=== PATIENT | female | born 1950 | race Caucasian/White ===

== ENCOUNTER → 2016-04-27 | Outpatient (CLI) | payer MEDICARE, BC ==
[~2016-04-27] MED LIST: AMLODIPINE BESYL5 MG PO; BACTROBAN OINT.22 GM TP; CELEXA DPS20 MG PO; CLEOCIN HCL150 MG PO; COZAAR100 MG PO; DETROL LA2 MG PO; HYDROCODON-ACE1 EAC4 PO; IBUPROFEN200 MG PO; POTASSIUM CHLO10 MEQ PO; PRAVACHOL40 MG PO; PRILOSEC DPS20 MG PO; TRIAMTERENE-HC1 EAC1 PO; TYLENOL EXTRA500 M1 PO
== END | disposition home or self-care (01) ==
LOC: RAD.S 11:06
DX: R22.1 Localized swelling, mass and lump, neck (principal); R59.0 Localized enlarged lymph nodes

== ENCOUNTER 2016-04-29 04:12 | Inpatient (IN) | payer MEDICARE, BC ==
[2016-05-02] MEDS ORDERED: HYDROCODON-ACE1 EAC4 PO (06:44)
[2016-05-02] MEDS ORDERED: TRIAMTERENE-HC1 EAC1 PO (06:44)
[2016-05-02] MEDS ORDERED: DETROL LA2 MG PO (06:44)
[2016-05-02] MEDS ORDERED: PRILOSEC DPS20 MG PO (06:45)
[2016-05-02] MEDS ORDERED: PRAVACHOL40 MG PO (06:45)
[2016-05-02] MEDS ORDERED: CELEXA DPS20 MG PO (06:45)
[2016-05-02] MEDS ORDERED: POTASSIUM CHLO10 MEQ PO (06:45)
[2016-05-02] MEDS ORDERED: COZAAR100 MG PO (06:45)
[2016-05-02] MEDS ORDERED: IBUPROFEN200 MG PO (06:46)
[2016-05-02] MEDS ORDERED: AMLODIPINE BESYL5 MG PO (06:46)
[2016-05-02] MEDS ORDERED: TYLENOL EXTRA500 M1 PO (06:46)
[2016-05-02] MEDS ORDERED: BACTROBAN OINT.22 GM TP (06:47)
[2016-05-02] MEDS ORDERED: CLEOCIN HCL150 MG PO (06:47)
== END 2016-05-01 13:23 | disposition home or self-care (01) | DRG 139 ==
DX: K11.23 Chronic sialoadenitis (principal); N31.9 Neuromuscular dysfunction of bladder, unspecified; I10 Essential (primary) hypertension; E78.5 Hyperlipidemia, unspecified; E11.9 Type 2 diabetes mellitus without complications; Z68.33 Body mass index [BMI] 33.0-33.9, adult; E87.6 Hypokalemia; E66.9 Obesity, unspecified; F32.9 Major depressive disorder, single episode, unspecified; K21.9 Gastro-esophageal reflux disease without esophagitis; Z85.820 Personal history of malignant melanoma of skin; Z79.82 Long term (current) use of aspirin